=== PATIENT | female | born 1960 | race Caucasian/White ===

== ENCOUNTER 2019-02-01 12:27 | Emergency (ER) | payer OTHER ==
[~2019-02-01] VITALS: Ht 167.6 cm; Wt 75.6 kg
[~2019-02-01 12:27] MED LIST: SLEEP MEDS
[2019-02-01 12:48] VITALS: BP 156/82; PULSE 61; RESP 17; Ht 167.6 cm; Wt 75.6 kg
[2019-02-01] MEDS ORDERED: IBUP800T48 PO (13:25)
[2019-02-01] MEDS ORDERED: ACET325T33 PO (13:25)
[2019-02-01] MEDS ORDERED: HYDR-4011 PO (13:26)
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
== END 2019-02-01 13:46 | disposition home or self-care (01) ==
LOC: FTE 12:27
DX: R52 Pain, unspecified (principal); F17.210 Nicotine dependence, cigarettes, uncomplicated
CPT/HCPCS: 99283